=== PATIENT | female | born 1995 | race Caucasian/White ===

== ENCOUNTER 2021-02-24 12:13 | Emergency (ER) | payer OTHER ==
[~2021-02-24] VITALS: Ht 157.5 cm; Wt 63.6 kg
[2021-02-24] MEDS ORDERED: SERT-162 PO (12:23)
[2021-02-24 14:22] VITALS: BP 103/64
== END 2021-02-24 14:24 | disposition home or self-care (01) ==
LOC: EMS 12:15
DX: T80.62XA Other serum reaction due to vaccination, initial encounter (principal); Y92.89 Other specified places as the place of occurrence of the external cause; F41.9 Anxiety disorder, unspecified
CPT/HCPCS: 93005; 99283